=== PATIENT | male | born 1950 | race Hispanic/Latino ===

== ENCOUNTER 2018-03-04 15:35 | Emergency (ER) | payer MEDICARE, MEDICAID ==
[2018-03-04 15:35] VITALS: BMI 23.8
[2018-03-04 15:54] VITALS: TEMP 97.8; O2SAT 98
--- NOTE | 2018-03-04 18:07 | C.PDOC ---
History Of Present Illness <Fox Patel - Last Filed: 03/04/18 20:42> <Prosper Clemente - Last Filed: 03/07/18 12:15> 67 year old male patient presents to the ER with c/o left chest pain associated with left elbow pain, left wrist pain, right toe pain and b/l knee pain. Patient reports he trip and fell and landed on both knees and on his left side. Patient notes the area with the most severe pain is left elbow and wrist. Patient denies SOB, vomiting and nausea. (Prosper Clemente) <Fox Patel - Last Filed: 03/04/18 20:42> History Per: Patient History/Exam Limitations: no limitations Onset/Duration Of Symptoms: Hrs Current Symptoms Are (Timing): Still Present <BrynProsper - Last Filed: 03/07/18 12:15> Chief Complaint (Nursing): Upper Extremity Problem/Injury Past Medical History Reviewed: Historical Data, Nursing Documentation, Vital Signs - Medical History PMH: Asthma, HTN, Hypercholesterolemia Family History: States: No Known Family Hx - Social History Hx Tobacco Use: No Hx Alcohol Use: No Hx Substance Use: No - Immunization History Hx Tetanus Toxoid Vaccination: Yes Hx Influenza Vaccination: Yes Hx Pneumococcal Vaccination: Yes <BrynProsper - Last Filed: 03/07/18 12:15> Vital Signs: Last Vital Signs Temp 97.8 F 03/04/18 20:51 Pulse 69 03/04/18 20:51 Resp 20 03/04/18 20:51 BP 91/60 L 03/04/18 20:51 Pulse Ox 98 03/04/18 20:51 Review Of Systems Except As Marked, All Systems Reviewed And Found Negative. Cardiovascular: Positive for: Chest Pain Respiratory: Negative for: Shortness of Breath Gastrointestinal: Negative for: Nausea, Vomiting Musculoskeletal: Positive for: Arm Pain (left elbow pain), Hand Pain (left wrist pain ), Leg Pain (b/l knee pain), Foot Pain (right toe pain) <BrynProsper - Last Filed: 03/07/18 12:15> Physical Exam - Physical Exam Appears: Non-toxic, No Acute Distress Skin: Normal Color, Warm, Dry Head: Atraumatic, Normacephalic Eye(s): bilateral: Normal Inspection Oral Mucosa: Moist Throat: Normal Neck: Normal ROM, Supple Chest: Symmetrical, No Deformity, Tenderness (left chest ) Cardiovascular: Rhythm Regular Respiratory: Normal Breath Sounds Gastrointestinal/Abdominal: Soft, No Tenderness Extremity: Normal ROM, Tenderness (elbow, wrist, and hallux ), No Pedal Edema, Capillary Refill (<2 sec ), No Deformity, Swelling (elbow and wrist ), Other ( pain in left elbow and wrist; +abrasion of left knee) Pulses: Left Radial: Normal, Right Radial: Normal, Left Dorsalis Pedis: Normal, Right Dorsalis Pedis: Normal Neurological/Psych: Oriented x3, Normal Speech, Normal Motor, Normal Sensation Gait: Steady <Prosper Clemente - Last Filed: 03/07/18 12:15> ED Course And Treatment - Laboratory Results Result Diagrams: 03/04/18 18:22 03/04/18 19:21 Pulse Ox Interpretation: Normal - Other Rad ribs X-Ray: Interpreted by Me, Viewed By Me Interpretation: no fx or dislocation, cabg hand X-Ray: Interpreted by Me, Viewed By Me Interpretation: fracture base 5th metacapal, non displaced r toe X-Ray: Interpreted by Me, Viewed By Me Interpretation: fracture non displaced proxymal phalanx r toe elbow X-Ray: Interpreted by Me, Viewed By Me Interpretation: no fracture or dislocation Reevaluation Time: 20:42 Reassessment Condition: Improved <Fox Patel - Last Filed: 03/04/18 20:42> - Laboratory Results Result Diagrams: 03/04/18 18:22 03/04/18 19:21 O2 Sat by Pulse Oximetry: 98 (RA) Pulse Ox Interpretation: Normal - Physician Consult Information Time Consulting Physician Contacted: 18:14 Physician Contacted: Rhys Peterson Outcome Of Conversation: Discussed case with Dr. Peterson. Dr. Peterson agrees to admit patient under his care. <Prosper Clemente - Last Filed: 03/07/18 12:15> Medical Decision Making <Fox Patel - Last Filed: 03/04/18 20:42> <Prosper Clemente - Last Filed: 03/07/18 12:15> Medical Decision Making: Upon provider reevaluation patient is feeling better, is medically stable, and requires no further treatment in the ED at this time. Patient will be discharged home . Counseling was provided and all questions were answered regarding diagnosis and need for follow up with the referred clinic. There is agreement to discharge plan. Return if symptoms persist or worsen. (Fox Patel ) Impression: s/p fall, r/o fracture of elbow and wrist. r/o knee injury Plans: -- blood work -- XR knee -- XR ribs -- XR wrist -- XR foot Case discussed with: Dr. Peterson Outcome: Admit patient Reassess: Patient is resting comfortably. (Prosper Clemente) Disposition Counseled Patient/Family Regarding: Studies Performed, Diagnosis, Need For Followup - Disposition Disposition Time: 19:00 <Fox Patel - Last Filed: 03/04/18 20:42> <Prosper Clemente - Last Filed: 03/07/18 12:15> - Disposition Referrals: Luda Dao MD [Medical Doctor] - Paul Cuevas DPM [Staff Provider] - Disposition: HOME/ ROUTINE Condition: FAIR Additional Instructions: Please return if symptoms recur Instructions: Hand Fracture (DC), Toe Fracture (DC) Forms: [employer] (Estonian) - Clinical Impression Clinical Impression: Fall, Fracture of left hand, Fracture of right great toe <Fox Patel - Last Filed: 03/04/18 20:42> - Scribe Statement The provider has reviewed the documentation as recorded by the Scribe <Prosper Clemente - Last Filed: 03/07/18 12:15> - Scribe Statement Frazier Do (Prosper Clemente) Provider Attestation: All medical record entries made by the Scribe were at my direction and personally dictated by me. I have reviewed the chart and agree that the record accurately reflects my personal performance of the history, physical exam, medical decision making, and the department course for this patient. I have also personally directed, reviewed, and agree with the discharge instructions and disposition. (Prosper Clemente)
[2018-03-04 18:27] LABS: BASO % 0.6 % (0.0-2.0); EOS # 0.2 K/uL (0.0-0.7); EOS % 3.5 % (0.0-4.0); HEMOGLOBIN 11.1 g/dL (12.0-18.0); LYMPH # 0.6 K/uL (1.0-4.3); LYMPH % 9.6 % (20.0-40.0); MEAN CELL VOLUME 100.9 fL (80.0-94.0); MEAN CORPUSCULAR HEMOGLOBIN 33.5 pg (27.0-31.0); MEAN CORPUSCULAR HGB CONC 33.3 g/dL (33.0-37.0); MEAN PLATELET VOLUME 8.7 fL (7.2-11.7); MONO # 0.6 K/uL (0.0-0.8); MONO % 9.9 % (0.0-10.0); NEUT # 4.7 K/uL (1.8-7.0); NEUT % 76.4 % (50.0-75.0); NRBC % 0.2 % (0.0-2.0); RBC 3.32 Mil/uL (4.40-5.90); WHITE BLOOD COUNT 6.1 K/uL (4.8-10.8)
[2018-03-04 18:35] LABS: INR 1.1; PLATELET COUNT 97 K/uL (130-400); PROTHROMBIN TIME 12.4 SECONDS (9.7-12.2)
[2018-03-04 18:59] LABS: ANISOCYTOSIS SLIGHT; BASOPHIL 1 % (0-2); EOSINOPHIL 3 % (0-4); HYPOCHROMIC SLIGHT; LYMPHOCYTE 12 % (20-40); MONOCYTE 8 % (0-10); NEUTROPHIL 76 % (50-75); NUCLEATED RED BLOOD CELL 1 % (0-0); PLATELET ESTIMATE DECREASED (NORMAL); POIKILOCYTOSIS SLIGHT; TOTAL CELLS COUNTED 100
[2018-03-04 19:39] LABS: ALB/GLOB RATIO 1.2 (1.0-2.1); ALBUMIN 3.8 g/dL (3.5-5.0); CALCIUM 9.2 mg/dl (8.6-10.4)
[2018-03-04 20:52] VITALS: BP 91/60; PULSE 69; RESP 20
--- NOTE | 2018-03-05 13:14 | RAD ---
Date of service: 03/04/2018 PROCEDURE: Bilateral Knee Radiographs. HISTORY: r/o fx COMPARISON: None. FINDINGS: BONES: Right Knee: Normal. No fracture. Left Knee: Normal. No fracture. JOINTS: Right Knee: Normal. No osteoarthritis. Left knee: Normal. No osteoarthritis. SOFT TISSUES: Right Knee: Extensive vascular calcification Left Knee: Extensive vascular calcification JOINT EFFUSION: Right Knee: None. Left Knee: None. OTHER FINDINGS: None. IMPRESSION: No fracture/ dislocation. Extensive vascular calcification bilaterally consistent with history of dialysis.
--- NOTE | 2018-03-05 13:52 | RAD ---
Left elbow three views History: Injury. Comparison: None available. Findings: Vascular calcifications. Enthesopathic change noted posterior to the olecranon at the triceps tendon insertion. Diffuse osteopenia. Focal soft tissue swelling and/or masses seen within the soft tissues both at the level of the humerus and ulna. Clinical correlation. Few soft tissue calcifications seen in the anterior soft tissues. No significant elbow joint effusion. Impression: Vascular calcifications. Enthesopathic change noted posterior to the olecranon at the triceps tendon insertion. Diffuse osteopenia. Focal soft tissue swelling and/or masses seen within the soft tissues both at the level of the humerus and ulna. Clinical correlation. Few soft tissue calcifications seen in the anterior soft tissues. No significant elbow joint effusion. If pain persists, consider correlation with MRI.
--- NOTE | 2018-03-05 14:13 | RAD ---
Chest and left ribs four views History: Injury. Evaluate for fracture. Comparison: None available. Findings: Moderate venous congestion. Bilateral hilar prominence. Patchy increased markings at the left lung base with small left pleural effusion. Status post median sternotomy. Cardiomegaly. Tortuous ectatic aorta. Degenerative changes in the spine and shoulders. No evidence for acute displaced rib fracture. If there is persistent concern for fracture, consider correlation with chest CT. Prominent cholelithiasis noted. Prior valve replacement. Prior CABG. Prominent vascular calcifications noted within the upper abdomen. Impression: Moderate venous congestion. Bilateral hilar prominence. Patchy increased markings at the left lung base with small left pleural effusion. Status post median sternotomy. Cardiomegaly. Tortuous ectatic aorta. Degenerative changes in the spine and shoulders. No evidence for acute displaced rib fracture. If there is persistent concern for fracture, consider correlation with chest CT. Prominent cholelithiasis noted. Prior valve replacement. Prior CABG. Prominent vascular calcifications noted within the upper abdomen.
--- NOTE | 2018-03-05 14:19 | RAD ---
Left wrist four views History: Fracture. Comparison: None available. Findings: Diffuse osteopenia. Prominent vascular calcifications. Transverse oblique fracture through the base of the 5th metacarpal bone. Question chronic deformity at the head of the 5th proximal phalanx. Narrowing of the radiocarpal joint space. Impression: Transverse oblique fracture through the base of the 5th metacarpal bone. Question chronic deformity at the head of the 5th proximal phalanx. Narrowing of the radiocarpal joint space. Diffuse osteopenia. Prominent vascular calcifications.
--- NOTE | 2018-03-05 14:31 | RAD ---
Right foot great toe three views History: Fracture. Comparison: None available. Findings: Cortical irregularity seen at the dorsal base of the 1st proximal phalanx concerning for possible intra-articular fracture deformity. Clinical correlation. Prominent vascular calcifications. Diffuse osteopenia. Hallux valgus deformity. Curvilinear radiopaque density seen at the medial aspect of the head of the 2nd proximal phalanx which may be related to vascular calcification. Impression: Cortical irregularity seen at the dorsal base of the 1st proximal phalanx concerning for possible intra-articular fracture deformity. Clinical correlation. Prominent vascular calcifications. Diffuse osteopenia. Hallux valgus deformity. Curvilinear radiopaque density seen at the medial aspect of the head of the 2nd proximal phalanx which may be related to vascular calcification.
--- NOTE | 2018-03-05 23:44 | CARD ---
APPROVED REPORT Date of service: 03/04/2018 EKG Measurement Heart [id number] HI [id number] <Conclusion> Sinus rhythm with premature supraventricular complexes Right superior axis deviation Nonspecific ST and T wave abnormality Abnormal ECG
== END 2018-03-04 21:11 | disposition home or self-care (01) ==
LOC: C.ER 15:35
DX: S62.347A Nondisplaced fracture of base of fifth metacarpal bone, left hand, initial encounter for closed fracture (principal); S92.414A Nondisplaced fracture of proximal phalanx of right great toe, initial encounter for closed fracture; W01.0XXA Fall on same level from slipping, tripping and stumbling without subsequent striking against object, initial encounter